=== PATIENT | female | born 1995 | race Caucasian/White ===

== ENCOUNTER 2018-11-16 14:29 | Emergency (ER) | payer SELFPAY ==
--- NOTE | 2018-11-16 14:55 | RAD ---
CHEST ONE VIEW: 11/16/18 at 2:40 p.m. HISTORY: Chest pain. FINDINGS: The cardiomediastinum is normal. The lungs are expanded and clear. The bony thorax is normal. IMPRESSION: Normal exam. POS: C
[2018-11-16 15:19] LABS: #Basophils 0.1 thou/uL (0.0-0.2); #Monocytes 0.4 thou/uL (0.11-0.59); #Neutrophils 3.6 thou/uL (1.40-6.50); %Basophils 1.2 % (0.0-1.0); %Eosinophils 0.6 % (0.0-10.0); %Lymphocytes 32.2 % (21.0-51.0); %Monocytes 6.9 % (0.0-10.0); %Neutrophils 59.1 % (42.0-75.0); Mean Corpuscular HGB CONC 36.2 g/dL (32.0-36.0); Mean Corpuscular Hemoglobin 31.9 pg (27.0-31.0); Mean Corpuscular Volume 88.2 fL (78.0-98.0); Mean Platelet Volume 7.7 fL (7.4-10.4); Platelet Count 220 thou/uL (130-400); RBC Distribution Width 12.2 % (11.5-14.5); Red Blood Cell (RBC) Count 5.01 mill/uL (4.20-5.40); White Blood Cell (WBC) Count 6.1 thou/uL (4.8-10.8)
[2018-11-16 15:45] LABS: ALT (SGPT) 10 U/L (8-55); AST (SGOT) 13 U/L (5-34); Albumin 4.7 g/dL (3.5-5.0); Alkaline Phosphatase 64 U/L (40-150); Anion Gap 14 mmol/L (10-20); BUN (Urea Nitrogen) 16 mg/dL (7.0-18.7); CK (CPK) 66 U/L (29-168); Calc. Creatinine Clearance 0 mL/min (70-130); Calcium 9.8 mg/dL (7.8-10.44); Carbon Dioxide 23 mmol/L (22-29); Chloride 105 mmol/L (98-107); Estimated GFR-MDRD Greater than 90; Globulin 2.6 g/dL (2.4-3.5); Glucose 117 mg/dL (70-105); Potassium 3.7 mmol/L (3.5-5.1); Protein, Total 7.3 g/dL (6.0-8.3); Sodium 138 mmol/L (136-145)
--- NOTE | 2018-11-19 22:33 | EKG ---
Test Reason : Blood Pressure : / mmHG Vent. Rate : 070 BPM Atrial Rate : 070 BPM P-R Int : 134 ms QRS Dur : 072 ms QT Int : 376 ms P-R-T Axes : 065 059 039 degrees QTc Int : 406 ms Normal sinus rhythm Septal infarct , age undetermined Abnormal ECG Confirmed by LUISITO RODRIGUEZ, MAC Menjivar ([id number]), deputy editor in chief ROSA MARTIN ([id number]) on 11/19/2018 10:32:41 PM Referred By: Confirmed By:MAC JORGE MD
== END 2018-11-16 16:59 | disposition home or self-care (01) ==
LOC: ERS 14:29
DX: K21.9 Gastro-esophageal reflux disease without esophagitis (principal); F41.9 Anxiety disorder, unspecified
CPT/HCPCS: 36415; 71045; 80053; 82550; 84484; 85025; 93005